=== PATIENT | male | born 1995 | race African-American/Black ===

== ENCOUNTER 2016-07-11 12:32 | Emergency (ER) | payer MEDICAID, OTHER ==
[~2016-07-11] VITALS: Ht 172.7 cm; Wt 59.0 kg
[~2016-07-11 12:32] MED LIST: IBUPROFEN200 MG ORAL; NKM; ZITHROMAX250 MG ORAL
[2016-07-11 12:49] VITALS: BP 119/73
[2016-07-11] MEDS ORDERED: Phenazopyridine 200mg tab ORAL ONE (13:00)
[2016-07-11] MEDS ORDERED: Lidocaine 1% MPF 10mg/ml 5ml ONE ×2 (13:19→13:26)
--- NOTE | 2016-07-11 13:25 | Emergency Room Report ---
History of Present Illness General Chief Complaint: Male Urogenital Problems Source: Patient Present Illness HPI 21-year-old male presents to the emergency department complaining of dysuria and penile discharge x4 days. Patient reports recent unprotected intercourse with onset of symptoms several days after. Patient denies nausea vomiting fevers chills or abdominal pain. Patient denies testicular pain, swelling, external skin lesions or history of immunocompromise. Patient denies hematuria. Denies CP, Palpitations, LOC, AMS, dizziness, Changes in Vision, Sensation, paresthesias, or a sudden severe headache. Allergies: Coded Allergies: No Known Allergies (Unverified , 10/22/15) Patient History Past Medical History: see triage record Past Surgical History: none Pertinent Family History: none Immunizations: UTD Reviewed Nursing Documentation: PMH: Agreed, PSxH: Agreed Nursing Documentation-PMH Past Medical History: No Stated History Review of Systems All Other Systems: negative except mentioned in HPI Physical Exam Vital Signs Date Time Temp Pulse Resp B/P Pulse Ox O2 Delivery O2 Flow Rate FiO2 07/11/16 12:49 98.6 80 16 119/73 98 Room Air Sp02 EP Interpretation: reviewed, normal General Appearance: no apparent distress, alert, GCS 15, non-toxic Head: normocephalic, atraumatic Eyes: bilateral eye PERRL, bilateral eye normal inspection ENT: hearing grossly normal, normal pharynx, no angioedema, normal voice Neck: full range of motion, supple/symm/no masses Respiratory: lungs clear, normal breath sounds, speaking full sentences Cardiovascular #1: regular rate, rhythm, no edema Gastrointestinal: non tender, soft, no guarding, no rebound Rectal: deferred Genitourinary: normal inspection, no CVA tenderness, scrotum normal, other - clear penile d/c noted, no external lesions, pt. is not circumcised, no LAD. Musculoskeletal: back normal, gait/station normal, normal range of motion, non- tender, no calf tenderness Neurologic: alert, oriented x3, responsive, motor strength/tone normal, sensory intact, speech normal Psychiatric: judgement/insight normal, memory normal, mood/affect normal, no suicidal/homicidal ideation Skin: normal color, no rash, warm/dry, well hydrated, other - no lesions noted Lymphatic: no adenopathy Medical Decision Making PA Attestation Dr. Tillman is my supervising Physician whom patient management has been discussed with. Diagnostic Impression: Primary Impression: Urethritis Additional Impression: Penile discharge ER Course Pt. presents to the ED c/o Dysuria and penile d/c x 4 days. , no testicular pain. Ddx considered but are not limited to UTi , STI, G & C, trichomonas, Urethritis Vital signs: are WNL, pt. is afebrile H&PE are most consistent with vaginitis ORDERS: - UA: bacteria, many WBC's and RBC's indicating acute infection. - G&C Urine: Pending ED INTERVENTIONS: -250mg Rocephin IM -200mg Pyridium -d/w pt that urine will be sent for G & C cultures, that he will be treated empirically, and if urine cultures as requiring alternative antibiotic that we will contact him as needed. DISCHARGE: At this time pt. is stable for d/c to home. Will provide printed patient care instructions, and any necessary prescriptions. Care plan and follow up instructions have been discussed with the patient prior to discharge. Labs Test 07/11/16 13:15 Urine Color Pale yellow Urine Appearance Clear Urine pH 8 (4.5-8.0) Urine Specific [place] 1.010 (1.005-1.035) Urine Protein 2+ (NEGATIVE) Urine Glucose (UA) Negative (NEGATIVE) Urine Ketones Negative (NEGATIVE) Urine Occult Blood 5+ (NEGATIVE) Urine Nitrite Negative (NEGATIVE) Urine Bilirubin Negative (NEGATIVE) Urine Urobilinogen Normal MG/DL (0.0-1.0) Urine Leukocyte Esterase 2+ (NEGATIVE) Urine RBC 10-15 /HPF (0 - 0) Urine WBC 20-30 /HPF (0 - 0) Urine Squamous Epithelial Cells Occasional /LPF Urine Bacteria Few /HPF (NONE) Last Vital Signs Date Time Temp Pulse Resp B/P Pulse Ox O2 Delivery O2 Flow Rate FiO2 07/11/16 12:49 98.6 16 119/73 98 Room Air 07/11/16 12:49 80 Disposition: HOME, SELF-CARE Condition: Stable Scripts Phenazopyridine Hcl* (PYRIDIUM*) 100 Mg Tablet 100 MG ORAL THREE TIMES A DAY for 7 Days, #21 TAB Prov: Caren Balderrama P.A. 07/11/16 Doxycycline Hyclate* (VIBRAMYCIN*) 100 Mg Capsule 100 MG ORAL EVERY 12 HOURS for 7 Days, #14 CAP 0 Refills Prov: Caren Balderrama 07/11/16 Patient Instructions: Urethritis, Adult Additional Instructions: Take medications as directed. Follow up with PCP in 3-5 days Return sooner to ED if new symptoms occur, or current symptoms become worse. - Please note that this Emergency Department Report was dictated using [employer] technology software, occasionally this can lead to erroneous entry secondary to interpretation by the dictation equipment. Caren Balderrama Jul 11, 2016 13:25
[2016-07-11] MEDS ORDERED: VIBRAMYCIN100 MG ORAL (13:26)
[2016-07-11] MEDS ORDERED: PHENAZOPYRIDIN100 MG ORAL (13:29)
[2016-07-11] MEDS ORDERED: Lidocaine 1% MPF 10mg/ml 5ml IM ONE ×2 (13:45)
[2016-07-11 13:50] VITALS: BP 117/72
[2016-07-11 13:55] LABS: APPEARANCE,URINE CLEAR; KETONES,URINE NEGATIVE (NEGATIVE); LEUKOCYTE ESTERASE ,URINE 2+ (NEGATIVE); NITRITE,URINE NEGATIVE (NEGATIVE); PH,URINE 8 (4.5-8.0); PROTEIN,URINE 2+ (NEGATIVE); UROBILINOGEN,URINE NORMAL MG/DL (0.0-1.0)
[2016-07-11 14:04] LABS: BACTERIA,URINE FEW /HPF; SQUAMOUS EPITHELIAL CELL,UR OCCASIONAL /LPF (NONE/OCC); WBC,URINE 20-30 /HPF (0 - 0)
== END 2016-07-11 13:50 | disposition home or self-care (01) ==
LOC: EMR 13:40
DX: N34.2 Other urethritis (principal); R36.9 Urethral discharge, unspecified
CPT/HCPCS: 81003; 87086; 87491; 87590; 96372; 99284; J0696

== ENCOUNTER 2018-05-13 13:21 | Emergency (ER) | payer OTHER ==
[~2018-05-13] VITALS: Ht 172.7 cm; Wt 59.0 kg
[~2018-05-13 13:21] MED LIST changes: +PHENAZOPYRIDIN100 MG ORAL; +VIBRAMYCIN100 MG ORAL
[2018-05-13 13:33] VITALS: BP 139/70
--- NOTE | 2018-05-13 13:39 | NUR ---
ED Nurse Note: PT. AAOXE. AMBULATORY. COMING FROM HOME PT. IS CONCERN WITH UNPROTECTED SEX. STARTED FEELING SICK: COUGHING CONGESTION, MUSCULAR CP
[2018-05-13] MEDS ORDERED: Lidocaine 1% MPF 10mg/ml 5ml INJ ONE (13:45)
[2018-05-13] MEDS ORDERED: Benzonatate 100mg Perles ORAL ONE (13:45)
[2018-05-13] MEDS ORDERED: Azithromycin 250mg tab ORAL ONE (13:45)
--- NOTE | 2018-05-13 13:50 | Emergency Room Report ---
History of Present Illness General Chief Complaint: Flu Like Symptoms Source: Patient Present Illness HPI 23-year-old male patient presents the ER with multiple complaints. Patient reports recent unprotected sexual encounter 2 days ago, states he was informed by his partner that she has a STI. Patient reports he is unsure of what STI it is but thinks it may be Trichomonas. Denies dysuria, hematuria., Penile discharge. Denies testicular pain. Denies rash. Denies flank pain, abdominal pain. Denies vomiting or diarrhea. Also complaining of cough and flulike symptoms for the past 2 weeks. Denies fever. Reports dry cough. Reports history of smoking. Denies shortness of breath. Reports chest pain with cough that is reproducible. Denies history of asthma or [place]. Denies history of heart disease. Denies other aggravating or relieving factors. States took over-the- counter DayQuil or help relief of symptoms. Allergies: Coded Allergies: No Known Allergies (Unverified , 10/22/15) Patient History Past Medical History: see triage record Reviewed Nursing Documentation: PMH: Agreed; PSxH: Agreed Nursing Documentation-PMH Past Medical History: No Stated History Review of Systems All Other Systems: negative except mentioned in HPI Physical Exam Vital Signs Date Time Temp Pulse Resp B/P (MAP) Pulse Ox O2 Delivery O2 Flow Rate FiO2 05/13/18 13:33 98.6 91 16 139/70 99 Room Air Sp02 EP Interpretation: reviewed, normal General Appearance: well appearing, no apparent distress, alert, GCS 15, non- toxic Head: normocephalic, atraumatic Eyes: bilateral eye normal inspection, bilateral eye PERRL ENT: hearing grossly normal, normal pharynx, no angioedema, normal voice, TMs + canals normal, uvula midline, moist mucus membranes Neck: full range of motion, no meningismus, no bony tend Respiratory: lungs clear, normal breath sounds, no rhonchi, no respiratory distress, no accessory muscle use, no wheezing, speaking full sentences Cardiovascular #1: regular rate, rhythm, no edema Gastrointestinal: non tender, soft, no mass, non-distended, no guarding, no rebound Genitourinary: no CVA tenderness Musculoskeletal: back normal, digits/nails normal, gait/station normal, normal range of motion, non-tender Neurologic: alert, oriented x3, responsive, motor strength/tone normal, sensory intact Skin: no rash Medical Decision Making PA Attestation Dr. Pak is my supervising Physician whom patient management has been discussed with. Diagnostic Impression: Primary Impression: Encounter for assessment of sexually transmitted disease exposure Additional Impressions: Trichomonas exposure Atypical pneumonia ER Course Pt. presents to the ED c/o cough, congestion, exposure to STI. Ddx considered but are not limited to gonorrhea, chalmydia, cystitis, pylonephritis, trichomonas, influenza, viral URI, pneumonia, strep throat, rhinitis, sinusitis, otitis media. Chest pain likely musculoskeletal in nature secondary to cough, patient reports pain is reproducible with cough, does not require cardiac workup at this time. Patient instructed to take NSAIDs as needed for pain symptoms. Vital signs: are WNL, pt. is afebrile Ordered UA and abx. ER COURSE: CXR shows no acute disease per the preliminary reading. Lungs clear to auscultation, no wheezes, rhonci or rales. patient afebrile. Given length of symptoms beyond normal viral course without relief of symptoms with over the counter medications, will treat patient as atypical pneumonia and provide oral abx at this time. no tonsillar exudates, no pharyngeal erythema, history of cough, no fever, no stridor, uvula midline, low suspicion for peritonsillar abscess. Likely viral etiology of symptoms. Symptomatic treatment. drink plenty of fluids. Salt water gargles for sore throat. Followup with PCP for further treatment and/or referral as needed. UA results show no acute infection, low suspicion for UTI. Due to patient exposure to trichomonas, will provide patient with Flagyl to cover for possible infection, advised not to drink alcohol taking medication. Provided patient with Rocephin and Azithromycin in the ER. Informed patient medications will cover for gonorrhea and chlamydia, needs further follow-up evaluation and possible treatment of other sexual transmitted infections. Advised to use safe sex practices including but not limited to use of condoms. Avoid sexual activity for the next 2 weeks. Instructed patient to follow up with STI clinic and/or PCP for STI evaluation and further treatment as necessary. Instructed patient to inform partners of needs for evaluation and treatment of possible infections. ER precautions given. DISCHARGE: -Rx given for Flagyl, Do not drink alcohol while taking medications. -Rx given for Tylenol -Rx given for Tessalon perles -Rx given for Azithromycin -Rx given for Zofran Patient is resting comfortably, in no acute distress, nontoxic appearing, talking without difficulty. Patient to take medications as instructed Will provide with patient care instructions and any necessary prescriptions. Care plan and follow-up instructions provided. Patient instructed to follow-up with primary care provider in 3 - 5 days. Patient questions asked and answered. Patient reports understanding and agreement to treatment plan. ER precautions given. Patient instructed to return to ER immediately for any new or worsening of symptoms including but not limited to increasing SOB, persistent fever. - Please note that this Emergency Department Report was dictated using [employer] technology software, occasionally this can lead to erroneous entry secondary to interpretation by the dictation equipment. Labs Test 05/13/18 13:25 Urine Color Yellow Urine Appearance Clear Urine pH 6 (4.5-8.0) Urine Specific [place] 1.015 (1.005-1.035) Urine Protein Negative (NEGATIVE) Urine Glucose (UA) Negative (NEGATIVE) Urine Ketones 1+ (NEGATIVE) Urine Blood Negative (NEGATIVE) Urine Nitrite Negative (NEGATIVE) Urine Bilirubin Negative (NEGATIVE) Urine Urobilinogen 1 MG/DL (0.0-1.0) Urine Leukocyte Esterase 1+ (NEGATIVE) Urine RBC 0 /HPF (0 - 0) Urine WBC 2-4 /HPF (0 - 0) Urine Squamous Epithelial Cells Occasional /LPF Urine Bacteria None /HPF (NONE) Chest X-Ray Diagnostic Results Chest X-Ray Diagnostic Results : Chest X-Ray Ordered: Yes # of Views/Limited/Complete: 1 View Indication: Chest Pain EP Interpretation: Yes PA Xray: Interpretation reviewed, by supervising MD, and agrees with findings. Interpretation: no consolidation, no effusion, no pneumothorax, no acute cardiopulmonary disease Impression: No acute disease MARVIN Scribe Text Lam Horton PA-C Last Vital Signs Date Time Temp Pulse Resp B/P (MAP) Pulse Ox O2 Delivery O2 Flow Rate FiO2 05/13/18 13:33 98.6 91 16 139/70 99 Room Air Status: improved Disposition: HOME, SELF-CARE Condition: Stable Scripts Benzonatate* (TESSALON PERLE*) 100 Mg Capsule 100 MG ORAL THREE TIMES A DAY, #15 PERLE Prov: Sriram Horton P.A. 05/13/18 Metronidazole* (FLAGYL*) 500 Mg Tablet 500 MG ORAL EVERY 12 HOURS, #14 TAB Prov: Sriram Horton 05/13/18 Ondansetron* (ZOFRAN*) 4 Mg Tablet 4 MG ORAL Q6H PRN for Nausea & Vomiting, #8 TAB Prov: Sriram Horton 05/13/18 Azithromycin* (ZITHROMAX*) 250 Mg Tablet 250 MG ORAL DAILY, #6 TAB 0 Refills Take two tables once daily for 1 day, then one tablet once daily for 4 days. Prov: Sriram Horton 05/13/18 Acetaminophen* (TYLENOL EXTRA STRENGTH*) 500 Mg Tablet 500 MG ORAL Q8H PRN for Prn Headache/Temp > 101, #30 TAB 0 Refills Prov: Sriram Horton 05/13/18 Patient Instructions: Community-Acquired Pneumonia, Adult, [id number], Costochondritis, [id number], Sexually Transmitted Disease, [id number], Trichomoniasis Additional Instructions: Followup with primary care provider and followup with STI clinic for further evaluation and treatment. Follow-up with primary care provider 2-3 days to discuss cough and congestion symptoms and further referral as needed. Take Tylenol for pain symptoms. Alert sexual partners for need for evaluation and treatment. Wear condoms during sex. Avoid sexual activity for 2 weeks. Drink plenty of fluids. Patient questions asked and answered. ER precautions given, patient instructed to return to ER immediately for any new or worsening of symptoms. Sriram Horton May 13, 2018 13:50
[2018-05-13 14:18] LABS: APPEARANCE,URINE CLEAR; BILIRUBIN, URINE NEGATIVE (NEGATIVE); GLUCOSE, URINE (UA) NEGATIVE (NEGATIVE); KETONES,URINE 1+ (NEGATIVE); LEUKOCYTE ESTERASE ,URINE 1+ (NEGATIVE); NITRITE,URINE NEGATIVE (NEGATIVE); PH,URINE 6 (4.5-8.0); PROTEIN,URINE NEGATIVE (NEGATIVE); UROBILINOGEN,URINE 1 MG/DL (0.0-1.0)
[2018-05-13 14:19] LABS: COLOR,URINE YELLOW
--- NOTE | 2018-05-13 14:40 | Diagnostic Imaging Report ---
Indication: Reason For Exam: COUGH Technique: One view of the chest Comparison: 10/22/2015 Findings: Lungs and pleural spaces are clear. Heart size is normal. No significant interim change Impression: No acute process
[2018-05-13] MEDS ORDERED: TYLENOL EXTRA500 MG ORAL (15:15)
[2018-05-13] MEDS ORDERED: TESSALON PERLE100 MG ORAL (15:15)
[2018-05-13] MEDS ORDERED: ZITHROMAX250 MG ORAL (15:15)
[2018-05-13] MEDS ORDERED: ZOFRAN4 M3 ORAL (15:15)
[2018-05-13] MEDS ORDERED: METRONIDAZOLE500 MG ORAL (15:15)
[2018-05-13 15:21] VITALS: BP_SYST 132; BP_SYST 139; BP_DIAS 70; BP_DIAS 75
--- NOTE | 2018-05-13 15:21 | NUR ---
ED Nurse Note: Pt is ready to be discharged by ERMD. Discharge paper and prescription given, mother verbalized understanding of discharge instruction. AOx4, VSS. Wristband removed. Pt ambulated out with steady gait with all belongings.
== END 2018-05-13 15:21 | disposition home or self-care (01) ==
LOC: EMR 13:47
DX: Z20.2 Contact with and (suspected) exposure to infections with a predominantly sexual mode of transmission (principal); J18.9 Pneumonia, unspecified organism
CPT/HCPCS: 71045; 81003; 96372; 99283; J0696; Q0144

== ENCOUNTER 2019-04-29 09:53 | Emergency (ER) | payer SELFPAY ==
[~2019-04-29] VITALS: Ht 172.7 cm; Wt 61.2 kg
[~2019-04-29 09:53] MED LIST changes: +METRONIDAZOLE500 MG ORAL; +TESSALON PERLE100 MG ORAL; +TYLENOL EXTRA500 MG ORAL; +ZOFRAN4 M3 ORAL
--- NOTE | 2019-04-29 10:08 | NUR ---
ED Nurse Note: Pt walked in from home c/o productive, painful cough that started last night. Respirations even and unlabored on room air. Vital signs stable as documented.
[2019-04-29 10:09] VITALS: BP 118/74
[2019-04-29] MEDS ORDERED: ROBITUSSIN NIG237 ML PO (10:26)
[2019-04-29] MEDS ORDERED: IBUPROFEN600 MG ORAL (10:26)
[2019-04-29] MEDS ORDERED: TAMIFLU75 MG ORAL (10:26)
--- NOTE | 2019-04-29 10:36 | Emergency Room Report ---
History of Present Illness General Chief Complaint: Flu Like Symptoms Source: Patient Present Illness HPI Patient presents with complaints of sore throat body ache cough and congestion More recently also bilateral eye discharge Denies any chest pain or shortness of breath denies any vomiting or diarrhea patient's brother has been sick with similar symptoms Patient's symptoms started last night Denies any posterior neck pain or photophobia denies any recent travel Allergies: Coded Allergies: No Known Allergies (Unverified , 10/22/15) Patient History Past Medical History: see triage record Reviewed Nursing Documentation: PMH: Agreed; PSxH: Agreed Nursing Documentation-PMH Past Medical History: No Stated History Review of Systems All Other Systems: negative except mentioned in HPI Physical Exam Vital Signs Date Time Temp Pulse Resp B/P (MAP) Pulse Ox O2 Delivery O2 Flow Rate FiO2 04/29/19 09:54 98.1 120 16 121/74 (90) 98 Room Air Sp02 EP Interpretation: reviewed, normal General Appearance: well appearing, no apparent distress Head: normocephalic, atraumatic Eyes: bilateral eye PERRL, bilateral eye EOMI ENT: hearing grossly normal, TMs + canals normal, uvula midline, nasal congestion, pharyngeal erythema Neck: full range of motion, supple, no meningismus, no bony tend Respiratory: lungs clear, normal breath sounds, no rhonchi, no respiratory distress, no retraction, no accessory muscle use Cardiovascular #1: normal peripheral pulses, regular rate, rhythm, no edema, no gallop, no JVD, no murmur Gastrointestinal: normal bowel sounds, non tender, soft, no mass, no organomegaly, non-distended, no guarding, no hernia, no pulsatile mass, no rebound Musculoskeletal: normal inspection Neurologic: motor strength/tone normal, casino banker III-XII nml as tested, oriented x3 , sensory intact, responsive Psychiatric: mood/affect normal Skin: no rash Lymphatic: normal inspection, no adenopathy Medical Decision Making Diagnostic Impression: Primary Impression: Influenza-like symptoms ER Course Multiple differentials including but not limited to pneumonia, URI, flu symptoms , meningitis considered Patient's presentation history and exam is consistent mainly with flulike symptoms given the patient's symptoms less than 24 hours patient is placed on Tamiflu and will have close outpatient follow-up Last Vital Signs Date Time Temp Pulse Resp B/P (MAP) Pulse Ox O2 Delivery O2 Flow Rate FiO2 04/29/19 10:09 118 16 Room Air 04/29/19 10:09 98.1 118/74 98 Status: improved Disposition: HOME, SELF-CARE Condition: Stable Scripts Dextromethorphan Hb/Doxylamine (ROBITUSSIN NIGHTTIME COUGH DM) 237 Ml Liquid 10 ML PO QHS for 5 Days, ML Prov: Ainsley Tillman DO 04/29/19 Ibuprofen* (MOTRIN*) 600 Mg Tablet 600 MG ORAL Q8H PRN for For Pain, #20 TAB 0 Refills Prov: Ainsley Tillman DO 04/29/19 Oseltamivir Phosphate (Tamiflu) 75 Mg Capsule 75 MG ORAL TWICE A DAY for 5 Days, CAP Prov: Ainsley Tillman DO 04/29/19 Referrals: [facility] Danis S[facility]chez [facility]. [facility] Departure Forms: Return to Work Return to Work in (Days): 2 Return to Work Date: May 01, 2019 Patient Instructions: Influenza, Adult, [id number] Additional Instructions: Patient is provided with the discharge instructions notified to follow up with primary doctor in the next 2-3 days otherwise return to the er with any worsening symptoms. Please note that this report is being documented using [id number] technology. This can lead to erroneous entry secondary to incorrect interpretation by the dictating instrument. Ainsley Tillman DO Apr 29, 2019 10:36
--- NOTE | 2019-04-29 10:39 | NUR ---
ER DISCHARGE NOTE: Patient is cleared to be discharged per ERMD, pt is aox4, on room air, with stable vital signs. pt was given dc and prescription instructions, pt was able to verbalize understanding, pt id band removed. pt is able to ambulate with steady gait. pt took all belongings.
[2019-04-29 10:40] VITALS: BP 125/83
== END 2019-04-29 10:40 | disposition home or self-care (01) ==
LOC: EMR 10:15
DX: J11.1 Influenza due to unidentified influenza virus with other respiratory manifestations (principal)
CPT/HCPCS: 99282